=== PATIENT | male | born 2000 | race Two or more races ===

== ENCOUNTER 2020-11-26 23:00 | Emergency (ER) | payer BC, MEDICAID ==
[~2020-11-26] VITALS: Ht 172.7 cm; Wt 90.7 kg
[2020-11-26 23:06] VITALS: BP 134/74
[2020-11-26] MEDS ORDERED: SULF1TAB48 PO (23:22)
[2020-11-26] MEDS ORDERED: CEPH500C2 PO (23:22)
--- NOTE | 2020-11-26 23:39 | NUR ---
Patient discharged to home in stable condition. Written and verbal after care instructions given. Patient verbalizes understanding of instruction.
== END 2020-11-26 23:39 | disposition home or self-care (01) ==
LOC: ER 23:03
DX: L05.91 Pilonidal cyst without abscess (principal)